=== PATIENT | female | born 1940 | race Two or more races ===

== ENCOUNTER 2024-06-14 01:33 | Inpatient (IN) | payer BC, MEDICAID ==
[~2024-06-14] VITALS: Ht 165.1 cm; Wt 34.4 kg
[2024-06-14] VITALS (30 sets, daily range): BP systolic 78–173; BP diastolic 41–99; PULSE 51–68; RESP 12; O2SAT 95–100
[~2024-06-14 01:33] MED LIST: rocuronium 10mg/ml inj IV ONE
[2024-06-14] MEDS: naloxone 2mg/2ml inj IV STA (01:50)
[2024-06-14] MEDS: etomidate 2mg/ml inj. IV STA (01:57)
[2024-06-14] MEDS: rocuronium 10mg/ml inj IV STA (01:57)
[2024-06-14] MEDS ORDERED: methylPREDNISolone sod succ 125mg/2ml vial IV ONE (02:05)
[2024-06-14] MEDS: normal saline 1000ML IV soln IV ONE (02:16)
[2024-06-14] MEDS: methylPREDNISolone sod succ/PF 40mg inj. IV ONE (02:19)
[2024-06-14] MEDS ORDERED: propofol 1000mg/100ml bottle 100 ML IV SCH (02:25)
[2024-06-14 02:33] LABS: BILIRUBIN,URINE NEGATIVE (Neg); CLARITY,URINE CLEAR (Clear); COLOR,URINE YELLOW (Yellow); GLUCOSE, URINE NEGATIVE (Neg); KETONES,URINE NEGATIVE (Neg); LEUKOCYTE ESTERASE ,URINE NEGATIVE (Neg); NITRITES, URINE NEGATIVE (Neg); OCCULT BLOOD,URINE NEGATIVE (Neg); PH,URINE 5.5 (4.8-8.0); PROTEIN,URINE TRACE mg/dl (Neg); UROBILINOGEN,URINE 0.2 E.U/dL (0.2-1.0)
[2024-06-14 02:35] LABS: ABG BASE EXCESS -4.1 mmol/L (-2.0-3.0); ABG HCO3 20.4 mmol/L (21.0-28.0); ABG OXYGEN SATURATION 99.3 % (94.0-98.0); ABG PCO2 (T) 31.2 mmHg (32.0-45.0); ABG PH (T) 7.422 (7.350-7.450); ABG PO2 (T) 244.5 mmHg (83.0-108.0); ALLEN'S TEST Modified; FCOHb 0.3 % (0.5-1.5); FHHb 0.7 % (0.0-5.0); FMetHb 0.3 % (0.0-1.5); FO2Hb 98.7 % (94.0-98.0); MODE ac/prvc; PATIENT TEMPERATURE 34.5; PEEP 5 cm H2O; RESPIRATORY RATE 12 b/min; TIDAL VOLUME 400 mL
[2024-06-14 02:41] LABS: UA COLLECTION TYPE FOLEY CATH
[2024-06-14] MEDS: propofol 1000mg/100ml bottle 100 ML IV SCH (02:47)
[2024-06-14 03:30] LABS: MUCUS STRANDS MODERATE /LPF (Neg)
[2024-06-14 03:31] LABS: BACTERIA,URINE FEW /HPF (Neg); RBC,URINE 0-2 /HPF (0-2); SQUAMOUS EPITHELIAL CELL,UR FEW /LPF (FEW); TRANSITIONAL EPI CELLS,URINE FEW /HPF; WBC,URINE 0-4 /HPF (0-4)
[2024-06-14 03:51] LABS: BASOPHILS % (AUTO) 0.2 % (0-1); EOSINOPHILS % (AUTO) 0.8 % (0-6); HEMATOCRIT 37.1 % (35.0-45.0); HEMOGLOBIN 11.9 g/dl (12.0-16.0); LYMPHOCYTES # (AUTO) 0.7 X10'3 (1.1-4.8); LYMPHOCYTES % (AUTO) 10.8 % (21-51); MEAN CORPUSCULAR HEMOGLOBIN 30.8 PG (27.0-31.0); MEAN CORPUSCULAR VOLUME 96.2 FL (78-98); MEAN PLATELET VOLUME 8.3 FL (7.4-10.4); MONOCYTES # (AUTO) 0.6 X10'3 (0-0.9); MONOCYTES % (AUTO) 9.3 % (2-12); NEUTROPHILS % (AUTO) 78.9 % (42-75); PLATELET COUNT 210 X10'3 (140-440); RED BLOOD COUNT 3.86 X10'6 (4.20-5.60); WHITE BLOOD COUNT 6.3 X10'3 (4.5-11.0)
[2024-06-14 04:13] LABS: ANION GAP 6 (8-16); BLOOD UREA NITROGEN 22 MG/DL (7-18); CALCIUM 8.4 MG/DL (8.5-10.1); CHLORIDE 112 MMOL/L (99-107); CREATININE 1.22 MG/DL (0.40-0.90); GLUCOSE 126 MG/DL (70-104); POTASSIUM 3.9 MMOL/L (3.5-5.1); PRO BRAIN NATRIURETIC PEPTIDE 605 PG/ML (0-450); SODIUM 148 MMOL/L (135-145); TOTAL CARBON DIOXIDE 30.3 MMOL/L (24-32); TRIGLYCERIDES 97 MG/DL (20-135); eCRCL 18 ML/MIN; eGFR 42 ML/MIN
[2024-06-14] MEDS: ringers solution, lacted 1,000 ML IV ONE ×4 (04:16→16:24)
[2024-06-14 06:24] LABS: URINE AMPHETAMINE SCREEN NEGATIVE (Neg); URINE BARBITUATE SCREEN NEGATIVE (Neg); URINE BENZODIAZEPINES SCREEN NEGATIVE (Neg); URINE CANNABINOID SCREEN POSITIVE (Neg); URINE COCAINE SCREEN NEGATIVE (Neg); URINE METHADONE SCREEN NEGATIVE (Neg); URINE OPIATE SCREEN NEGATIVE (Neg); URINE PHENCYCLIDINE SCREEN NEGATIVE (Neg)
[2024-06-14] MEDS: midazolam 100mg in NS 100ml 100 ML IV SCH (06:39)
[2024-06-14] MEDS: FENTANYL-0.9 % NACL/PF 100 ML IV SCH (06:41)
[2024-06-14] MEDS ORDERED: acetaminophen 325mg tablet PO PRN ×2 (06:55)
[2024-06-14] MEDS ORDERED: magnesium hydroxide 30ml (MOM) UD suspension PO PRN (06:55)
[2024-06-14] MEDS ORDERED: ondansetron/PF 4mg/2ml inj IV PRN (06:55)
[2024-06-14] MEDS ORDERED: morphine 4 MG/ML inj SYRINge IV PRN (06:55)
[2024-06-14] MEDS ORDERED: morphine 2 MG/ML inj. syringe IV PRN (06:55)
[2024-06-14] MEDS: LidoCAINE 2% Topical Jelly 11mL syringe (UROJET) TOP ONE (07:34)
[2024-06-14] MEDS: normal saline 1000ml 1,000 ML IV SCH (07:51)
[2024-06-14] MEDS ORDERED: albuterol 2.5 MG/3 ML nebule NEB SCH (08:00)
[2024-06-14] MEDS ORDERED: ipratropium 0.5 MG/2.5ML nebule IH SCH (08:00)
[2024-06-14] MEDS: methylPREDNISolone sod succ/PF 40mg inj. IV SCH (09:13)
[2024-06-14] MEDS: enoxaparin 30mg/0.3ml syringe SUBCUT SCH (09:14)
[2024-06-14] MEDS: pantoprazole 40MG/NS 100ML BAG 100 ML IV SCH (10:09)
[2024-06-14] MEDS: azithromycin/NS 500mg/250ml 250 ML IV SCH (10:26)
[2024-06-14] MEDS ORDERED: UNABLE TO OBTAIN (13:59)
[2024-06-14] MEDS ORDERED: acetaminophen 325mg/10.15ml oral unit dose solution OGT PRN ×2 (14:45→14:47)
[2024-06-14] MEDS ORDERED: magnesium hydroxide 30ml (MOM) UD suspension OGT PRN (14:47)
[2024-06-14] MEDS: ipratropium/albuterol 3ml nebule NEB SCH (15:20)
[2024-06-15] VITALS (40 sets, daily range): BP systolic 85–135; BP diastolic 44–74; PULSE 54–112; RESP 10–32; O2SAT 93–100
[2024-06-15 06:14] LABS: BASOPHILS % (AUTO) 0 % (0-1); EOSINOPHILS % (AUTO) 0 % (0-6); HEMATOCRIT 31.8 % (35.0-45.0); HEMOGLOBIN 10.4 g/dl (12.0-16.0); LYMPHOCYTES # (AUTO) 0.3 X10'3 (1.1-4.8); LYMPHOCYTES % (AUTO) 3.4 % (21-51); MEAN CORPUSCULAR HEMOGLOBIN 31.3 PG (27.0-31.0); MEAN CORPUSCULAR HGB CONC 32.7 g/dL (33.0-36.5); MEAN CORPUSCULAR VOLUME 95.5 FL (78-98); MEAN PLATELET VOLUME 8.5 FL (7.4-10.4); MONOCYTES # (AUTO) 0.4 X10'3 (0-0.9); NEUTROPHILS # (AUTO) 7.4 X10'3 (1.8-7.7); NEUTROPHILS % (AUTO) 91.6 % (42-75); PLATELET COUNT 198 X10'3 (140-440); RED BLOOD COUNT 3.33 X10'6 (4.20-5.60); RED CELL DISTRIBUTION WIDTH 15.6 % (11.5-14.5); WHITE BLOOD COUNT 8.1 X10'3 (4.5-11.0)
[2024-06-15 06:19] LABS: ALBUMIN 2.3 G/DL (3.4-5.0); ANION GAP 12 (8-16); BLOOD UREA NITROGEN 23 MG/DL (7-18); BUN/CREATININE RATIO 17.8 (10.0-20.0); CALCIUM 7.7 MG/DL (8.5-10.1); CHLORIDE 113 MMOL/L (99-107); CREATININE 1.29 MG/DL (0.40-0.90); GLUCOSE 156 MG/DL (70-104); MAGNESIUM 1.6 MG/DL (1.5-2.4); PHOSPHORUS 3.4 MG/DL (2.3-4.5); POTASSIUM 4.1 MMOL/L (3.5-5.1); SODIUM 147 MMOL/L (135-145); TOTAL CARBON DIOXIDE 21.9 MMOL/L (24-32); TRIGLYCERIDES 46 MG/DL (20-135); eCRCL 17 ML/MIN; eGFR 39 ML/MIN
[2024-06-15 07:18] LABS: BILIRUBIN,DIRECT 0.2 MG/DL (0-0.3)
[2024-06-15 09:35] LABS: ABG HCO3 19.2 mmol/L (21.0-28.0); ABG OXYGEN SATURATION 96.5 % (94.0-98.0); ABG PCO2 (T) 42.3 mmHg (32.0-45.0); ABG PH (T) 7.278 (7.350-7.450); ABG PO2 (T) 100.1 mmHg (83.0-108.0); ALLEN'S TEST POSITIVE; FCOHb 0.2 % (0.5-1.5); FHHb 3.5 % (0.0-5.0); FMetHb 0.3 % (0.0-1.5); MODE PRVC; PATIENT TEMPERATURE 37.6; PEEP 5 cm H2O; RESPIRATORY RATE 12 b/min; TIDAL VOLUME 300 mL; TOTAL HEMOGLOBIN 10.9 G/dl (12.0-16.0)
[2024-06-15] MEDS ORDERED: naloxone 0.4 mg/ml inj IV PRN (13:55)
[2024-06-15] MEDS: ipratropium/albuterol 3ml nebule NEB SCH (14:26)
[2024-06-16] VITALS (25 sets, daily range): BP systolic 98–147; BP diastolic 53–80; PULSE 66–102; RESP 12–27; TEMP 96.8–98; O2SAT 80–100
[2024-06-16 03:34] LABS: BASOPHILS % (AUTO) 0 % (0-1); EOSINOPHILS % (AUTO) 0 % (0-6); HEMOGLOBIN 10.5 g/dl (12.0-16.0); LYMPHOCYTES # (AUTO) 0.3 X10'3 (1.1-4.8); LYMPHOCYTES % (AUTO) 2.3 % (21-51); MEAN CORPUSCULAR HEMOGLOBIN 31.1 PG (27.0-31.0); MEAN CORPUSCULAR HGB CONC 32.7 g/dL (33.0-36.5); MEAN CORPUSCULAR VOLUME 95.2 FL (78-98); MEAN PLATELET VOLUME 8.2 FL (7.4-10.4); MONOCYTES # (AUTO) 0.4 X10'3 (0-0.9); MONOCYTES % (AUTO) 3.8 % (2-12); NEUTROPHILS % (AUTO) 93.9 % (42-75); PLATELET COUNT 184 X10'3 (140-440); RED BLOOD COUNT 3.36 X10'6 (4.20-5.60); RED CELL DISTRIBUTION WIDTH 15.5 % (11.5-14.5); WHITE BLOOD COUNT 10.7 X10'3 (4.5-11.0)
[2024-06-16 03:48] LABS: ALANINE AMINOTRANSFERASE 28 U/L (12-78); ALBUMIN 2.3 G/DL (3.4-5.0); ALBUMIN/GLOBULIN RATIO 0.7 (1.1-1.5); ALKALINE PHOSPHATASE 67 IU/L (46-116); ANION GAP 8 (8-16); ASPARTATE AMINO TRANSFERASE 17 U/L (10-37); BILIRUBIN,TOTAL 0.3 MG/DL (0.1-1.0); BLOOD UREA NITROGEN 26 MG/DL (7-18); BUN/CREATININE RATIO 21.1 (10.0-20.0); CALCIUM 8.3 MG/DL (8.5-10.1); CHLORIDE 116 MMOL/L (99-107); CREATININE 1.23 MG/DL (0.40-0.90); GLUCOSE 131 MG/DL (70-104); MAGNESIUM 1.8 MG/DL (1.5-2.4); PHOSPHORUS 3.6 MG/DL (2.3-4.5); POTASSIUM 4.1 MMOL/L (3.5-5.1); SODIUM 147 MMOL/L (135-145); TOTAL CARBON DIOXIDE 22.6 MMOL/L (24-32); TOTAL PROTEIN 5.6 G/DL (6.4-8.2); eCRCL 18 ML/MIN; eGFR 42 ML/MIN
[2024-06-16] MEDS: CefTRIAXone 2gm/D5W 50ml BAG 50 ML IV SCH (16:12)
[2024-06-16] MEDS: dextrose 5%-water 1,000 ML IV SCH (16:15)
[2024-06-16] MEDS: lactose-reduced food (Ensure Enlive) - 237ml bottle PO SCH (18:00)
[2024-06-17] VITALS (15 sets, daily range): BP systolic 131–191; BP diastolic 62–82; PULSE 63–113; RESP 12–20; TEMP 96.7–98.2; O2SAT 85–100
[2024-06-17 08:58] LABS: ALANINE AMINOTRANSFERASE 47 U/L (12-78); ALBUMIN 2.4 G/DL (3.4-5.0); ALBUMIN/GLOBULIN RATIO 0.6 (1.1-1.5); ALKALINE PHOSPHATASE 116 IU/L (46-116); ANION GAP 10 (8-16); ASPARTATE AMINO TRANSFERASE 55 U/L (10-37); BILIRUBIN,TOTAL 0.1 MG/DL (0.1-1.0); BLOOD UREA NITROGEN 32 MG/DL (7-18); BUN/CREATININE RATIO 21.6 (10.0-20.0); CALCIUM 8.4 MG/DL (8.5-10.1); CHLORIDE 113 MMOL/L (99-107); CREATININE 1.48 MG/DL (0.40-0.90); GLUCOSE 142 MG/DL (70-104); PHOSPHORUS 3.1 MG/DL (2.3-4.5); POTASSIUM 4.3 MMOL/L (3.5-5.1); SODIUM 144 MMOL/L (135-145); TOTAL CARBON DIOXIDE 21.3 MMOL/L (24-32); TOTAL PROTEIN 6.4 G/DL (6.4-8.2); TRIGLYCERIDES 65 MG/DL (20-135); eCRCL 15 ML/MIN; eGFR 34 ML/MIN
[2024-06-17] MEDS: heparin, porcine 5000 units/ml vial SQ SCH (09:08)
[2024-06-17 16:21] LABS: BASOPHILS % (AUTO) 0 % (0-1); EOSINOPHILS % (AUTO) 0 % (0-6); HEMATOCRIT 37.3 % (35.0-45.0); HEMOGLOBIN 11.5 g/dl (12.0-16.0); LYMPHOCYTES # (AUTO) 0.2 X10'3 (1.1-4.8); LYMPHOCYTES % (AUTO) 1.2 % (21-51); MEAN CORPUSCULAR HEMOGLOBIN 32.1 PG (27.0-31.0); MEAN CORPUSCULAR VOLUME 103.8 FL (78-98); MEAN PLATELET VOLUME 8.9 FL (7.4-10.4); MONOCYTES # (AUTO) 0.5 X10'3 (0-0.9); NEUTROPHILS # (AUTO) 12.1 X10'3 (1.8-7.7); NEUTROPHILS % (AUTO) 94.8 % (42-75); PLATELET COUNT 153 X10'3 (140-440); RED BLOOD COUNT 3.59 X10'6 (4.20-5.60); RED CELL DISTRIBUTION WIDTH 18.4 % (11.5-14.5); WHITE BLOOD COUNT 12.8 X10'3 (4.5-11.0)
[2024-06-17] MEDS ORDERED: hydrALAZINE 20mg/ml inj. IV PRN (17:45)
[2024-06-17] MEDS: PERFLUTREN PROTEIN-A MICROSPHR (Optison) 0.22 MG/ML 3ML VIAL IV ONE (17:45)
[2024-06-17] MEDS: amLODIPine 5mg tablet PO SCH (18:45)
[2024-06-17] MEDS: methylPREDNISolone sod succ 125mg/2ml vial IV SCH (20:13)
[2024-06-18] VITALS (15 sets, daily range): BP systolic 113–147; BP diastolic 51–80; PULSE 70–100; RESP 15–18; TEMP 96.4–98.3; O2SAT 95–100
[2024-06-19] VITALS (17 sets, daily range): BP systolic 90–122; BP diastolic 48–71; PULSE 83–108; RESP 13–20; TEMP 97.2–97.8; O2SAT 96–100
[2024-06-19 22:48] LABS: BASOPHILS % (AUTO) 0.2 % (0-1); EOSINOPHILS % (AUTO) 0 % (0-6); HEMATOCRIT 35.6 % (35.0-45.0); HEMOGLOBIN 11.6 g/dl (12.0-16.0); LYMPHOCYTES # (AUTO) 0.1 X10'3 (1.1-4.8); MEAN CORPUSCULAR HEMOGLOBIN 30.9 PG (27.0-31.0); MEAN CORPUSCULAR HGB CONC 32.6 g/dL (33.0-36.5); MEAN CORPUSCULAR VOLUME 95.1 FL (78-98); MEAN PLATELET VOLUME 8.5 FL (7.4-10.4); MONOCYTES # (AUTO) 0.9 X10'3 (0-0.9); NEUTROPHILS # (AUTO) 11.5 X10'3 (1.8-7.7); NEUTROPHILS % (AUTO) 91.8 % (42-75); PLATELET COUNT 152 X10'3 (140-440); RED BLOOD COUNT 3.74 X10'6 (4.20-5.60); RED CELL DISTRIBUTION WIDTH 15.6 % (11.5-14.5); WHITE BLOOD COUNT 12.5 X10'3 (4.5-11.0)
[2024-06-19 23:02] LABS: ALANINE AMINOTRANSFERASE 56 U/L (12-78); ALBUMIN 2.6 G/DL (3.4-5.0); ALBUMIN/GLOBULIN RATIO 0.8 (1.1-1.5); ALKALINE PHOSPHATASE 103 IU/L (46-116); ANION GAP 3 (8-16); ASPARTATE AMINO TRANSFERASE 24 U/L (10-37); BILIRUBIN,TOTAL 0.2 MG/DL (0.1-1.0); BLOOD UREA NITROGEN 47 MG/DL (7-18); CALCIUM 8.5 MG/DL (8.5-10.1); CHLORIDE 110 MMOL/L (99-107); CREATININE 1.81 MG/DL (0.40-0.90); GLUCOSE 129 MG/DL (70-104); MAGNESIUM 1.9 MG/DL (1.5-2.4); PHOSPHORUS 2.6 MG/DL (2.3-4.5); POTASSIUM 4.7 MMOL/L (3.5-5.1); SODIUM 143 MMOL/L (135-145); TOTAL CARBON DIOXIDE 29.7 MMOL/L (24-32); eCRCL 13 ML/MIN; eGFR 27 ML/MIN
[2024-06-20] VITALS (17 sets, daily range): BP systolic 102–157; BP diastolic 61–83; PULSE 81–138; RESP 12–31; TEMP 97.5–98.3; O2SAT 90–99
[2024-06-20 09:06] LABS: BASOPHILS % (AUTO) 0.2 % (0-1); EOSINOPHILS % (AUTO) 0 % (0-6); HEMATOCRIT 36.3 % (35.0-45.0); HEMOGLOBIN 11.7 g/dl (12.0-16.0); LYMPHOCYTES # (AUTO) 0.1 X10'3 (1.1-4.8); MEAN CORPUSCULAR HEMOGLOBIN 30.5 PG (27.0-31.0); MEAN CORPUSCULAR HGB CONC 32.2 g/dL (33.0-36.5); MEAN CORPUSCULAR VOLUME 94.8 FL (78-98); MEAN PLATELET VOLUME 8.8 FL (7.4-10.4); MONOCYTES # (AUTO) 0.3 X10'3 (0-0.9); MONOCYTES % (AUTO) 2.7 % (2-12); NEUTROPHILS # (AUTO) 11.1 X10'3 (1.8-7.7); NEUTROPHILS % (AUTO) 96.1 % (42-75); PLATELET COUNT 158 X10'3 (140-440); RED BLOOD COUNT 3.82 X10'6 (4.20-5.60); RED CELL DISTRIBUTION WIDTH 15.7 % (11.5-14.5); WHITE BLOOD COUNT 11.5 X10'3 (4.5-11.0)
[2024-06-20 09:27] LABS: ALANINE AMINOTRANSFERASE 49 U/L (12-78); ALBUMIN 2.5 G/DL (3.4-5.0); ALBUMIN/GLOBULIN RATIO 0.7 (1.1-1.5); ALKALINE PHOSPHATASE 90 IU/L (46-116); ANION GAP 6 (8-16); ASPARTATE AMINO TRANSFERASE 18 U/L (10-37); BILIRUBIN,TOTAL 0.3 MG/DL (0.1-1.0); BLOOD UREA NITROGEN 42 MG/DL (7-18); BUN/CREATININE RATIO 25.8 (10.0-20.0); CALCIUM 8.7 MG/DL (8.5-10.1); CHLORIDE 108 MMOL/L (99-107); CREATININE 1.63 MG/DL (0.40-0.90); GLUCOSE 188 MG/DL (70-104); PHOSPHORUS 2.8 MG/DL (2.3-4.5); POTASSIUM 4.6 MMOL/L (3.5-5.1); SODIUM 141 MMOL/L (135-145); TOTAL CARBON DIOXIDE 26.8 MMOL/L (24-32); TRIGLYCERIDES 70 MG/DL (20-135); eCRCL 14 ML/MIN; eGFR 30 ML/MIN
[2024-06-20] MEDS: digoxin 250mcg/ml 2ml ampule IV ONE (09:52)
[2024-06-20] MEDS: diltiazem-NS 100mg/100ml 100 ML IV SCH ×2 (14:42→17:16)
[2024-06-20] MEDS: amiodarone 200mg tablet PO SCH (17:13)
[2024-06-20] MEDS: pantoprazole 40 MG vial IV SCH (20:00)
[2024-06-20] MEDS: apixaban 2.5mg tablet PO SCH (20:00)
[2024-06-21] VITALS (14 sets, daily range): BP systolic 103–126; BP diastolic 52–75; PULSE 62–93; RESP 14–29; TEMP 97.2–98.2; O2SAT 92–98
[2024-06-21 08:10] LABS: BASOPHILS % (AUTO) 0.1 % (0-1); EOSINOPHILS % (AUTO) 0 % (0-6); HEMATOCRIT 40.3 % (35.0-45.0); HEMOGLOBIN 13.1 g/dl (12.0-16.0); LYMPHOCYTES # (AUTO) 0.2 X10'3 (1.1-4.8); LYMPHOCYTES % (AUTO) 1.7 % (21-51); MEAN CORPUSCULAR HEMOGLOBIN 31.2 PG (27.0-31.0); MEAN CORPUSCULAR HGB CONC 32.5 g/dL (33.0-36.5); MEAN PLATELET VOLUME 9.4 FL (7.4-10.4); MONOCYTES # (AUTO) 0.6 X10'3 (0-0.9); MONOCYTES % (AUTO) 4.6 % (2-12); NEUTROPHILS # (AUTO) 11.9 X10'3 (1.8-7.7); NEUTROPHILS % (AUTO) 93.6 % (42-75); PLATELET COUNT 172 X10'3 (140-440); WHITE BLOOD COUNT 12.7 X10'3 (4.5-11.0)
[2024-06-21] MEDS ORDERED: PRED10TA23 PO (08:46)
[2024-06-21] MEDS ORDERED: FLUT1DIS4 INH (08:46)
[2024-06-21] MEDS ORDERED: ALBU90AE INH (08:46)
[2024-06-21] MEDS ORDERED: NOR5T PO (08:48)
[2024-06-21] MEDS ORDERED: METO50TA16 PO (08:50)
[2024-06-21] MEDS ORDERED: ASPI81TA52 PO (08:52)
[2024-06-21 09:14] LABS: ALANINE AMINOTRANSFERASE 56 U/L (12-78); ALBUMIN 2.4 G/DL (3.4-5.0); ALBUMIN/GLOBULIN RATIO 0.7 (1.1-1.5); ALKALINE PHOSPHATASE 102 IU/L (46-116); ANION GAP 4 (8-16); ASPARTATE AMINO TRANSFERASE 15 U/L (10-37); BILIRUBIN,TOTAL 0.2 MG/DL (0.1-1.0); BLOOD UREA NITROGEN 42 MG/DL (7-18); BUN/CREATININE RATIO 27.6 (10.0-20.0); CALCIUM 8.6 MG/DL (8.5-10.1); CHLORIDE 111 MMOL/L (99-107); CREATININE 1.52 MG/DL (0.40-0.90); GLUCOSE 155 MG/DL (70-104); POTASSIUM 4.8 MMOL/L (3.5-5.1); SODIUM 145 MMOL/L (135-145); TOTAL CARBON DIOXIDE 29.8 MMOL/L (24-32); TOTAL PROTEIN 5.8 G/DL (6.4-8.2); eCRCL 15 ML/MIN; eGFR 33 ML/MIN
[2024-06-21 09:16] LABS: MAGNESIUM 2.1 MG/DL (1.5-2.4); PHOSPHORUS 3.5 MG/DL (2.3-4.5)
[2024-06-21] MEDS: metoprolol tartrate 50mg tablet PO SCH (09:23)
[2024-06-21] MEDS ORDERED: APIX2.5T PO (15:31)
[2024-06-21] MEDS ORDERED: AMI200T PO (15:31)
== END 2024-06-21 16:11 | disposition home or self-care (01) | DRG 208 ==
LOC: ER 01:34 → ED HOLD 06:54 → CICU 2S 08:55 → PCU 3S 06-16 10:58
PROVIDERS: ADMIT Internal Medicine Critical Care Medicine; ATTEND Internal Medicine Critical Care Medicine
PROC: 5A1945Z Respiratory Ventilation, 24-96 Consecutive Hours (ICD-10-PCS; principal; 2024-06-14)
PROC: 0BH17EZ Insertion of Endotracheal Airway into Trachea, Via Natural or Artificial Opening (ICD-10-PCS; 2024-06-14)
DX: J44.1 Chronic obstructive pulmonary disease with (acute) exacerbation (principal); J96.01 Acute respiratory failure with hypoxia; E43 Unspecified severe protein-calorie malnutrition; J96.02 Acute respiratory failure with hypercapnia; E87.20 Acidosis, unspecified; Z68.1 Body mass index [BMI] 19.9 or less, adult; E87.0 Hyperosmolality and hypernatremia; Z20.822 Contact with and (suspected) exposure to COVID-19; I48.91 Unspecified atrial fibrillation; D50.9 Iron deficiency anemia, unspecified; I16.0 Hypertensive urgency; I27.20 Pulmonary hypertension, unspecified; J43.9 Emphysema, unspecified; Z79.01 Long term (current) use of anticoagulants; Z79.51 Long term (current) use of inhaled steroids; Z79.899 Other long term (current) drug therapy
CPT/HCPCS: 36415; 36600; 70450; 71045; 71250; 74176; 80048; 80053; 80162; 80305; 81001; 82248; 82803; 82948; 83036; 83605; 83735; 83880; 84100; 84145; 84443; 84478; 84484; 85018; 85025; 87040; 87081; 87502; 87503; 87811; 93005; 93306; 94002; 94640; 94760; 94799; 96374; 96375; 97110; 97161; 97530; 99291; 99292; A4615; A6213; A6449; A7015; A9900; C1751; C1758; G0378; J0456; J0696; J1160; J1644; J1650; J2310; J2470; J2704; J2919; J3010; J3490; J7030; J7040; J7042; J7070; J7120; J7121